=== PATIENT | male | born 1960 | race Caucasian/White ===

== ENCOUNTER 2019-11-05 17:59 | Emergency (ER) | payer OTHER ==
[~2019-11-05] VITALS: Ht 177.8 cm; Wt 109.0 kg
[2019-11-05 19:21] LABS: BASOPHILS # (AUTO) 0.1 X10'3 (0-0.2); BASOPHILS % (AUTO) 0.6 % (0-1); EOSINOPHILS # (AUTO) 0.1 X10'3 (0-0.9); EOSINOPHILS % (AUTO) 0.6 % (0-6); HEMATOCRIT 42.2 % (42.0-52.0); HEMOGLOBIN 14.1 g/dl (14.0-17.9); LYMPHOCYTES # (AUTO) 2.3 X10'3 (1.1-4.8); MEAN CORPUSCULAR HEMOGLOBIN 30.4 PG (27.0-31.0); MEAN CORPUSCULAR HGB CONC 33.3 g/dL (33.0-36.5); MEAN CORPUSCULAR VOLUME 91.3 FL (78-98); MEAN PLATELET VOLUME 8.7 FL (7.4-10.4); MONOCYTES % (AUTO) 8.1 % (2-12); NEUTROPHILS # (AUTO) 9.4 X10'3 (1.8-7.7); NEUTROPHILS % (AUTO) 72.7 % (42-75); PLATELET COUNT 249 X10'3 (140-440); RED BLOOD COUNT 4.63 X10'6 (4.70-6.10); RED CELL DISTRIBUTION WIDTH 13.1 % (11.5-14.5)
[2019-11-05 19:27] LABS: CLARITY,URINE CLEAR (Clear); COLOR,URINE YELLOW (Yellow); GLUCOSE, URINE NEGATIVE (Neg); KETONES,URINE NEGATIVE (Neg); LEUKOCYTE ESTERASE ,URINE NEGATIVE (Neg); NITRITES, URINE NEGATIVE (Neg); OCCULT BLOOD,URINE NEGATIVE (Neg); PROTEIN,URINE NEGATIVE (Neg); UROBILINOGEN,URINE 0.2 E.U/dL (0.2-1.0)
[2019-11-05 19:28] LABS: UA COLLECTION TYPE VOIDED
[2019-11-05 19:39] LABS: ALANINE AMINOTRANSFERASE 116 U/L (12-78); ALBUMIN 4.3 G/DL (3.4-5.0); ALBUMIN/GLOBULIN RATIO 1.2 (1.1-1.5); ALKALINE PHOSPHATASE 101 IU/L (46-116); ANION GAP 6 (8-16); ASPARTATE AMINO TRANSFERASE 72 U/L (10-37); BILIRUBIN,TOTAL 0.4 MG/DL (0.1-1.0); BLOOD UREA NITROGEN 15 MG/DL (7-18); BUN/CREATININE RATIO 15.2 (5.4-32.0); CALCIUM 9.3 MG/DL (8.5-10.1); CHLORIDE 103 MMOL/L (99-107); CREATININE 0.99 MG/DL (0.60-1.10); GLUCOSE 103 MG/DL (70-104); POTASSIUM 3.8 MMOL/L (3.5-5.1); SODIUM 139 MMOL/L (135-145); TOTAL CARBON DIOXIDE 29.8 MMOL/L (24-32); TOTAL PROTEIN 7.9 G/DL (6.4-8.2); eGFR 77 ML/MIN
[2019-11-05 20:01] LABS: LIPASE 96 U/L (73-393)
[2019-11-05] MEDS ORDERED: acetaminophen 325mg tablet PO ONE (21:10)
[2019-11-05] MEDS ORDERED: ketorolac trometh. 30mg/ml inj. IV ONE (21:10)
[2019-11-05] MEDS ORDERED: ondansetron/PF 4mg/2ml inj IV ONE (21:10)
[2019-11-05 21:22] LABS: D-DIMER 0.89 MG/L FEU (0-0.50)
[2019-11-05] MEDS ORDERED: iohexol 350MG/ML 100ml bottle IV ONE (21:31)
[2019-11-05] MEDS ORDERED: HYDR-3965 PO (22:45)
[2019-11-05 22:59] VITALS: BP 180/109
== END 2019-11-05 23:00 | disposition home or self-care (01) ==
LOC: ER 17:59
DX: S30.1XXA Contusion of abdominal wall, initial encounter (principal); R07.89 Other chest pain; R05 Cough; R51 Headache; R06.02 Shortness of breath; R22.41 Localized swelling, mass and lump, right lower limb; Z88.5 Allergy status to narcotic agent; Z79.899 Other long term (current) drug therapy; X58.XXXA Exposure to other specified factors, initial encounter; Y93.89 Activity, other specified; Y92.89 Other specified places as the place of occurrence of the external cause; Y99.8 Other external cause status
CPT/HCPCS: 36415; 71046; 71275; 74177; 76700; 80053; 81003; 83605; 83690; 83880; 84145; 85025; 85379; 85610; 87040; 87502; 87503; 96374; 96375; 99284; J1885; J2405; Q9967

== ENCOUNTER 2020-01-04 04:20 | Inpatient (IN) | payer OTHER ==
[~2020-01-04] VITALS: Ht 177.8 cm; Wt 123.0 kg
[2020-01-04 05:33] LABS: HEMOGLOBIN 14.9 g/dl (14.0-17.9); MEAN PLATELET VOLUME 8.1 FL (7.4-10.4)
[2020-01-04 05:35] LABS: BASOPHILS # (AUTO) 0.1 X10'3 (0-0.2); BASOPHILS % (AUTO) 0.7 % (0-1); EOSINOPHILS # (AUTO) 0.4 X10'3 (0-0.9); EOSINOPHILS % (AUTO) 3.5 % (0-6); HEMATOCRIT 44.1 % (42.0-52.0); LYMPHOCYTES # (AUTO) 1.4 X10'3 (1.1-4.8); LYMPHOCYTES % (AUTO) 12.8 % (21-51); MEAN CORPUSCULAR HEMOGLOBIN 30.1 PG (27.0-31.0); MEAN CORPUSCULAR HGB CONC 33.7 g/dL (33.0-36.5); MEAN CORPUSCULAR VOLUME 89.4 FL (78-98); MONOCYTES # (AUTO) 0.7 X10'3 (0-0.9); MONOCYTES % (AUTO) 6.5 % (2-12); NEUTROPHILS # (AUTO) 8.6 X10'3 (1.8-7.7); NEUTROPHILS % (AUTO) 76.5 % (42-75); PLATELET COUNT 228 X10'3 (140-440); RED BLOOD COUNT 4.93 X10'6 (4.70-6.10); WHITE BLOOD COUNT 11.2 X10'3 (4.5-11.0)
[2020-01-04 05:44] LABS: ALANINE AMINOTRANSFERASE 40 U/L (12-78); ALBUMIN 3.8 G/DL (3.4-5.0); ALKALINE PHOSPHATASE 123 IU/L (46-116); ANION GAP 6 (8-16); ASPARTATE AMINO TRANSFERASE 22 U/L (10-37); BILIRUBIN,TOTAL 0.3 MG/DL (0.1-1.0); BLOOD UREA NITROGEN 16 MG/DL (7-18); BUN/CREATININE RATIO 16.7 (5.4-32.0); CALCIUM 8.4 MG/DL (8.5-10.1); CHLORIDE 104 MMOL/L (99-107); CREATININE 0.96 MG/DL (0.60-1.10); GLUCOSE 91 MG/DL (70-104); POTASSIUM 3.6 MMOL/L (3.5-5.1); SODIUM 140 MMOL/L (135-145); TOTAL CARBON DIOXIDE 29.7 MMOL/L (24-32); TOTAL PROTEIN 7.5 G/DL (6.4-8.2); eGFR 80 ML/MIN
[2020-01-04] MEDS ORDERED: ipratropium/albuterol 3ml nebule NEB ONE (06:55)
[2020-01-04] MEDS ORDERED: methylPREDNISolone sod succ 125mg/2ml vial IV ONE (06:55)
[2020-01-04 09:02] LABS: PARTIAL THROMBOPLASTIN TIME 26 SECONDS (22-32)
[2020-01-04 09:14] LABS: D-DIMER 1.37 MG/L FEU (0-0.50)
--- NOTE | 2020-01-04 10:22 | NUR ---
PT CURRENTLY SPEAKING WITH HOSPITALIST.
[2020-01-04] MEDS ORDERED: magnesium 2GM in 50ml NS 50 ML IV PRN (10:35)
[2020-01-04] MEDS ORDERED: magnesium 4gm in 100ml NS 100 ML IV PRN (10:35)
[2020-01-04] MEDS ORDERED: acetaminophen 325mg tablet PO PRN (10:35)
[2020-01-04] MEDS ORDERED: potassium CL 10mEq/100ml bag 100 ML IV PRN ×2 (10:35)
[2020-01-04] MEDS ORDERED: potassium Cl 20 mEq SR tablet PO PRN ×2 (10:35)
[2020-01-04] MEDS ORDERED: mag hydrox/Alum hydrox/simeth 30ml oral suspension PO PRN (10:35)
[2020-01-04] MEDS ORDERED: ipratropium/albuterol 3ml nebule NEB PRN (10:35)
[2020-01-04] MEDS ORDERED: ondansetron/PF 4mg/2ml inj IV PRN (10:35)
[2020-01-04 11:23] LABS: BASOPHILS % (AUTO) 0.3 % (0-1); EOSINOPHILS # (AUTO) 0.2 X10'3 (0-0.9); EOSINOPHILS % (AUTO) 1.4 % (0-6); HEMATOCRIT 44.6 % (42.0-52.0); HEMOGLOBIN 14.8 g/dl (14.0-17.9); LYMPHOCYTES # (AUTO) 0.3 X10'3 (1.1-4.8); LYMPHOCYTES % (AUTO) 2.6 % (21-51); MEAN CORPUSCULAR HEMOGLOBIN 29.6 PG (27.0-31.0); MEAN CORPUSCULAR HGB CONC 33.3 g/dL (33.0-36.5); MEAN CORPUSCULAR VOLUME 88.9 FL (78-98); MEAN PLATELET VOLUME 8.2 FL (7.4-10.4); MONOCYTES # (AUTO) 0.5 X10'3 (0-0.9); MONOCYTES % (AUTO) 4.2 % (2-12); NEUTROPHILS % (AUTO) 91.5 % (42-75); PLATELET COUNT 238 X10'3 (140-440); RED BLOOD COUNT 5.02 X10'6 (4.70-6.10); RED CELL DISTRIBUTION WIDTH 13.8 % (11.5-14.5); WHITE BLOOD COUNT 12.1 X10'3 (4.5-11.0)
[2020-01-04] MEDS ORDERED: HYDROcodone/acetaminophen 10/325mg tab PO ONE (11:55)
[2020-01-04 11:59] LABS: PLATELET ESTIMATE NORMAL; TOTAL CELLS COUNTED 100
--- NOTE | 2020-01-04 12:08 | NUR ---
PT GIVEN ICE PACK FOR HIS NECK, PT REPORTS HAVING A HEADACHE.
[2020-01-04] MEDS ORDERED: metoprolol tartrate 50mg tablet PO ONE (13:05)
[2020-01-04] MEDS: methylPREDNISolone sod succ/PF 40mg inj. IV SCH ×2 (13:14→21:00)
[2020-01-04] MEDS: piperacillin/tazo 4.5gm/100ml 100 ML IV SCH (16:00)
--- NOTE | 2020-01-04 18:00 | NUR ---
Patient arrived on unit, able to transfer self from wheelchair to bed. Patient states he is nauseous, per report suhail already given
[2020-01-04 18:33] VITALS: BP 177/98
--- NOTE | 2020-01-04 18:39 | NUR ---
Problems reprioritized. Patient report given, questions answered & plan of care reviewed with CLAUS Lloyd.
[2020-01-04 18:42] VITALS: BP 170/100
--- NOTE | 2020-01-04 18:49 | NUR ---
Patient in room PCU 3012. I have received report from Shavon DEVLIN and had the opportunity to ask questions and assume patient care.upon bedside report, manual BP elevated. page [phone] MESSAGE: chase mike.room 3012 B, manual BP 170/100. pt denies chest pain, currently not taking home BP medication shelli DEVLIN ext [phone]. Dr. Hong called back and placed new orders.
[2020-01-04] MEDS ORDERED: hydrALAZINE 20mg/ml inj. IV PRN (18:55)
[2020-01-04] MEDS ORDERED: proCHLORperazine 10 MG/2 ml inj IV PRN (19:00)
[2020-01-04] MEDS: metoprolol tartrate 25mg tablet PO SCH (19:14)
[2020-01-04] MEDS: K and/or MAG REPLACEMENT MC SCH (19:16)
[2020-01-04] MEDS ORDERED: BUDE0.5A3 NEB (19:30)
[2020-01-04] MEDS ORDERED: ALB0.5UD IH (19:30)
[2020-01-04] MEDS ORDERED: MELO15TA13 PO (19:30)
[2020-01-04 19:46] VITALS: BP 186/100
[2020-01-04 20:19] VITALS: BP 198/109
--- NOTE | 2020-01-04 20:26 | NUR ---
:hospitalist paged r/t MICKIE. despite 2000 dose of medication and PRN hydralazine [id number] MESSAGE: chase mike 3012 B, hypertensive BP 198/100 BP 87. denies chest pain. 1 hour post hydralazine 10 mg IV and metoprolol 25mg PO. shelli DEVLIN ext [phone]
[2020-01-04] MEDS ORDERED: labetalol 20mg/4ml (5mg/ml) syringe IV PRN (20:40)
[2020-01-04] MEDS ORDERED: traMADol 50MG tablet PO PRN (20:40)
--- NOTE | 2020-01-04 20:47 | NUR ---
Dr. Bernstein paged to clarify orders. PAGER ID: [phone] MESSAGE: Rubio Braun. 3012 B, received orders for Mobic 15 mg PO. 5 minutes ago, but it is non formulary. Pharmacist suggest naproxen 500 mg BID PO.
[2020-01-04 21:15] VITALS: BP 160/80
[2020-01-04 22:00] VITALS: BP 160/99
--- NOTE | 2020-01-04 22:52 | NUR ---
Dr. Bernstein paged PAGER ID: [phone] MESSAGE: Rubio Braun. [id number] request something a sleep aid. pt has taken zzyquil. in the past. the active ingredient in zzyquil is Benadryl. [place] [phone] called back, new orders 1. diphenhydramine 25 mg PO HS /PRN
[2020-01-04] MEDS ORDERED: diphenhydrAMINE 25mg capsule PO PRN (22:55)
[2020-01-04] MEDS: naproxen 500mg tablet PO SCH (23:11)
[2020-01-05 02:32] VITALS: BP 145/78
[2020-01-05 02:43] LABS: BASOPHILS % (AUTO) 0.2 % (0-1); EOSINOPHILS % (AUTO) 0.1 % (0-6); HEMATOCRIT 42.2 % (42.0-52.0); HEMOGLOBIN 14.1 g/dl (14.0-17.9); LYMPHOCYTES # (AUTO) 0.6 X10'3 (1.1-4.8); LYMPHOCYTES % (AUTO) 6.8 % (21-51); MEAN CORPUSCULAR HEMOGLOBIN 29.4 PG (27.0-31.0); MEAN CORPUSCULAR HGB CONC 33.4 g/dL (33.0-36.5); MEAN PLATELET VOLUME 8.3 FL (7.4-10.4); MONOCYTES # (AUTO) 0.8 X10'3 (0-0.9); MONOCYTES % (AUTO) 8.8 % (2-12); NEUTROPHILS # (AUTO) 7.4 X10'3 (1.8-7.7); NEUTROPHILS % (AUTO) 84.1 % (42-75); PLATELET COUNT 250 X10'3 (140-440); RED BLOOD COUNT 4.79 X10'6 (4.70-6.10); RED CELL DISTRIBUTION WIDTH 14.1 % (11.5-14.5); WHITE BLOOD COUNT 8.8 X10'3 (4.5-11.0)
[2020-01-05 02:51] LABS: ALANINE AMINOTRANSFERASE 47 U/L (12-78); ALBUMIN 3.7 G/DL (3.4-5.0); ALBUMIN/GLOBULIN RATIO 1.1 (1.1-1.5); ALKALINE PHOSPHATASE 94 IU/L (46-116); ANION GAP 9 (8-16); ASPARTATE AMINO TRANSFERASE 29 U/L (10-37); BILIRUBIN,TOTAL 0.6 MG/DL (0.1-1.0); BLOOD UREA NITROGEN 15 MG/DL (7-18); BUN/CREATININE RATIO 17.2 (5.4-32.0); CALCIUM 8.6 MG/DL (8.5-10.1); CHLORIDE 100 MMOL/L (99-107); CREATININE 0.87 MG/DL (0.60-1.10); GLUCOSE 135 MG/DL (70-104); MAGNESIUM 2.1 MG/DL (1.5-2.4); SODIUM 135 MMOL/L (135-145); eGFR 90 ML/MIN
[2020-01-05] MEDS: piperacillin/tazo 4.5gm/100ml 100 ML IV SCH ×3 (03:34→07:58)
--- NOTE | 2020-01-05 06:10 | NUR ---
Problems reprioritized. Patient report given, questions answered & plan of care reviewed with Ann DEVLIN.
--- NOTE | 2020-01-05 06:15 | NUR ---
Patient in room PCU 3012. I have received report from Katerin DEVLIN and had the opportunity to ask questions and assume patient care.
[2020-01-05 07:00] VITALS: BP 150/83
[2020-01-05] MEDS: naproxen 500mg tablet PO SCH (07:57)
[2020-01-05] MEDS: methylPREDNISolone sod succ/PF 40mg inj. IV SCH (07:57)
[2020-01-05] MEDS: metoprolol tartrate 25mg tablet PO SCH (07:57)
[2020-01-05] MEDS: K and/or MAG REPLACEMENT MC SCH (08:00)
[2020-01-05] MEDS ORDERED: enoxaparin 40mg/0.4ml syringe SQ SCH (08:00)
[2020-01-05] MEDS ORDERED: furosemide 20 MG/2 ML vial IV ONE (08:45)
[2020-01-05] MEDS ORDERED: lisinopril 10 MG tablet PO SCH (08:45)
[2020-01-05] MEDS ORDERED: LISI10TA4 PO (09:54)
[2020-01-05] MEDS ORDERED: METO25TA6 PO (09:54)
[2020-01-05] MEDS ORDERED: PRED20TA PO (09:54)
[2020-01-05] MEDS ORDERED: FURO20TA4 PO (09:54)
[2020-01-05 10:15] VITALS: BP_SYST 165
--- NOTE | 2020-01-05 12:42 | NUR ---
Patient stable for discharge per MD order. All discharge education and information reviewed with patient before signing necessary paperwork. IV discontinued with catheter in tact, computer operations specialist removed and returned, all patient belongings packed up and sent with patient. New prescriptions sent to [facility] on [address]. Patient walked to lobby accompanied by his .
== END 2020-01-05 12:37 | disposition home or self-care (01) | DRG 293 ==
LOC: ER 04:20 → ED HOLD 10:41 → PCU 3S 18:01
PROVIDERS: ADMIT Family Medicine; ATTEND Family Medicine
PROC: B32T1ZZ Computerized Tomography (CT Scan) of Left Pulmonary Artery using Low Osmolar Contrast (ICD-10-PCS; principal; 2020-01-04)
PROC: B3201ZZ Computerized Tomography (CT Scan) of Thoracic Aorta using Low Osmolar Contrast (ICD-10-PCS; 2020-01-04)
PROC: B32S1ZZ Computerized Tomography (CT Scan) of Right Pulmonary Artery using Low Osmolar Contrast (ICD-10-PCS; 2020-01-04)
DX: I11.0 Hypertensive heart disease with heart failure (principal); I42.0 Dilated cardiomyopathy; I50.30 Unspecified diastolic (congestive) heart failure; Z79.899 Other long term (current) drug therapy; Z80.1 Family history of malignant neoplasm of trachea, bronchus and lung; Z80.42 Family history of malignant neoplasm of prostate; Z85.46 Personal history of malignant neoplasm of prostate; Z87.01 Personal history of pneumonia (recurrent); Z88.5 Allergy status to narcotic agent
CPT/HCPCS: 36415; 71046; 71275; 80053; 83605; 83735; 83880; 84484; 85025; 85379; 85610; 85730; 87040; 93005; 93306; 94640; 94760; 96374; 99285; G0378; J0360; J0780; J1650; J1940; J2405; J2543; J2920; J2930; J3490; Q0163; Q9967